=== PATIENT | female | born 1990 | race African-American/Black ===

== ENCOUNTER 2016-09-24 00:08 | Emergency (ER) | payer OTHER ==
[2016-09-24 00:14] VITALS: BP 125/66; PULSE 65; RESP 18; TEMP 98.3
[2016-09-24] MEDS ORDERED: IBUPROFEN 400 MG TAB PO STA (00:37)
--- NOTE | 2016-09-24 00:42 | ED ---
Extremity Problem HPI - General Chief complaint: Extremity Problem,Nontraumatic Stated complaint: elbow pain Time Seen by Provider: 09/24/16 00:26 Source: patient Mode of arrival: ambulatory Limitations: no limitations - History of Present Illness MD Complaint: joint paint Onset/Timin -: days(s) Location: right, elbow History of Same: No Quality: dull Consistency: constant Improves with: nothing Worsens with: other Associated Symptoms: denies other symptoms (Movement) - Related Data Previous Rx's Medication Instructions Recorded Ibuprofen 800 mg PO TID #30 tablet 09/24/16 Allergies Allergy/AdvReac Type Severity Reaction Status Date / Time No Known Allergies Allergy Verified 09/24/16 00:14 Review of Systems ROS Statement: Those systems with pertinent positive or pertinent negative responses have been documented in the HPI. ROS Other: All systems not noted in ROS Statement are negative. Past Medical History Past Medical History: Asthma, Hypertension Additional Past Medical History / Comment(s): "lupus" History of Any Multi-Drug Resistant Organisms: None Reported Past Surgical History: Section, Orthopedic Surgery Additional Past Surgical History / Comment(s): c-sect x 3, ovarian cysts removed , left foot reconstruction Past Psychological History: No Psychological Hx Reported Smoking Status: Never smoker Past Alcohol Use History: None Reported Past Drug Use History: None Reported General Exam Limitations: no limitations General appearance: alert, in no apparent distress, obese Cardiovascular Exam: Present: other (Normal radial and ulnar pulse. Normal capillary refill) Right Shoulder Exam: Present: normal inspection, full ROM Upper Arm exam: Present: normal inspection, full ROM Elbow exam: Present: normal inspection, full ROM, tenderness (To the posterior medial aspect, adjacent to the medial epicondyle. Inspection is normal, and palpation reveals no obvious deformity.). Absent: swelling, abrasion, laceration, ecchymosis, deformity, crepitus, dislocation, erythema, effusion, pain w/ pronation/supination, tenderness over radial head Forearm Wrist exam: Present: normal inspection, full ROM. Absent: tenderness, swelling, abrasion Hand Wrist exam: Present: normal inspection, full ROM. Absent: tenderness, swelling, abrasion Neurosensory exam: Present: radial nerve intact, ulnar nerve intact, median nerve intact Vascular: Present: normal capillary refill Neurological exam: Absent: motor sensory deficit Skin exam: Present: warm, dry, intact, normal color. Absent: rash Course Vital Signs 09/24/16 00:09 Temperature 98.3 F Pulse Rate 65 Respiratory 18 Rate Blood Pressure 125/66 O2 Sat by Pulse 97 Oximetry Disposition Clinical Impression: Strain of elbow and forearm Disposition: HOME SELF-CARE Condition: Good Instructions: Tennis Elbow (ED) Prescriptions: Ibuprofen 800 mg PO TID #30 tablet Referrals: None,Stated [REFERRING] - 1-2 days
--- NOTE | 2016-09-24 01:17 | XR ---
EXAM: XR Right Elbow Complete, 3 or More Views CLINICAL HISTORY: Reason: Pain TECHNIQUE: Frontal, lateral and oblique views of the right elbow. COMPARISON: No relevant prior studies available. FINDINGS: Bones/joints: Unremarkable. No acute fracture. No dislocation. Soft tissues: Unremarkable. IMPRESSION: No acute osseous abnormality of the right elbow.
== END 2016-09-24 01:25 | disposition home or self-care (01) ==
LOC: EC 00:08
DX: S46.811A Strain of other muscles, fascia and tendons at shoulder and upper arm level, right arm, initial encounter (principal); S56.911A Strain of unspecified muscles, fascia and tendons at forearm level, right arm, initial encounter; X58.XXXA Exposure to other specified factors, initial encounter
CPT/HCPCS: 99283

== ENCOUNTER 2016-10-08 21:45 | Emergency (ER) | payer OTHER ==
[2016-10-08 22:22] VITALS: RESP 18
[2016-10-08] MEDS ORDERED: KETOROLAC 30 MG/ML 1 ML VIAL IVP STA (23:18)
[2016-10-08] MEDS ORDERED: SODIUM CHLORIDE 0.9% 500 ML IV STA (23:18)
--- NOTE | 2016-10-08 23:23 | ED ---
General Adult HPI - General Chief complaint: Recheck/Abnormal Lab/Rx Stated complaint: abdominal pain Time Seen by Provider: 10/08/16 23:04 Source: patient Mode of arrival: ambulatory Limitations: no limitations - History of Present Illness Initial comments: Patient is a 25-year-old woman with history of lupus, who states that she has been out of her lupus medication for a period of time and is now having aches all over including her abdomen. She states that the abdominal pain is probably the worst. She indicates pain diffusely. It is somewhat colicky. She has not discovered any worsening or relieving factors. She states that she gets her primary care out of the city of [place], and when she called her doctor to let them know that she was out of her medication, the scheduled her for an appointment at start of November. -: days(s) Location: abdomen Radiation: non-radiation Quality: dull Consistency: constant Improves with: none Worsens with: none - Related Data Previous Rx's Medication Instructions Recorded Ibuprofen 800 mg PO TID #30 tablet 09/24/16 predniSONE 60 mg PO DAILY #30 tab 10/09/16 Allergies Allergy/AdvReac Type Severity Reaction Status Date / Time No Known Allergies Allergy Verified 10/08/16 22:22 Review of Systems ROS Statement: Those systems with pertinent positive or pertinent negative responses have been documented in the HPI. ROS Other: All systems not noted in ROS Statement are negative. Constitutional: Denies: fever, chills, weakness Respiratory: Denies: cough, dyspnea Cardiovascular: Denies: chest pain, palpitations, orthopnea Gastrointestinal: Reports: abdominal pain, nausea. Denies: vomiting, diarrhea, constipation, melena, hematochezia Genitourinary: Denies: dysuria, hematuria Musculoskeletal: Reports: arthralgia, myalgia. Denies: back pain Skin: Denies: rash Neurological: Denies: headache, weakness, numbness, paresthesias Past Medical History Past Medical History: Asthma, Hypertension Additional Past Medical History / Comment(s): "lupus" History of Any Multi-Drug Resistant Organisms: None Reported Past Surgical History: Section, Orthopedic Surgery Additional Past Surgical History / Comment(s): c-sect x 3, ovarian cysts removed , left foot reconstruction Past Psychological History: Bipolar Smoking Status: Never smoker Past Alcohol Use History: None Reported Past Drug Use History: None Reported General Exam Limitations: no limitations General appearance: alert, in no apparent distress, obese Head exam: Present: atraumatic, normocephalic Eye exam: Present: normal appearance. Absent: scleral icterus, conjunctival injection ENT exam: Present: normal oropharynx Neck exam: Present: normal inspection Respiratory exam: Present: normal lung sounds bilaterally. Absent: respiratory distress, wheezes, rales, rhonchi, stridor Cardiovascular Exam: Present: regular rate, normal rhythm, normal heart sounds. Absent: systolic murmur, diastolic murmur, rubs, gallop GI/Abdominal exam: Present: soft, tenderness. Absent: distended, guarding, rebound, rigid, mass, pulsatile mass, hernia Extremities exam: Present: normal inspection, normal capillary refill. Absent: pedal edema, calf tenderness Back exam: Present: normal inspection. Absent: CVA tenderness (R), CVA tenderness (L) Neurological exam: Present: alert Skin exam: Present: warm, dry, intact, normal color. Absent: rash Course Vital Signs 10/08/16 22:20 Temperature 98.7 F Pulse Rate 89 Respiratory 18 Rate Blood Pressure 121/82 O2 Sat by Pulse 98 Oximetry Medical Decision Making - Lab Data Result diagrams: 10/09/16 00:00 10/09/16 00:00 Lab Results 10/09/16 10/09/16 10/09/16 Range/Units 00:00 00:00 00:00 WBC 8.5 (3.8-10.6) k/uL RBC 4.26 (3.80-5.40) m/uL Hgb 13.2 (11.4-16.0) gm/dL Hct 37.6 (34.0-46.0) % MCV 88.2 (80.0-100.0) fL MCH 30.9 (25.0-35.0) pg MCHC 35.1 (31.0-37.0) g/dL RDW 13.7 (11.5-15.5) % Plt Count 265 (150-450) k/uL Neutrophils % 69 % Lymphocytes % 23 % Monocytes % 5 % Eosinophils % 1 % Basophils % 0 % Neutrophils # 5.8 (1.3-7.7) k/uL Lymphocytes # 2.0 (1.0-4.8) k/uL Monocytes # 0.4 (0-1.0) k/uL Eosinophils # 0.1 (0-0.7) k/uL Basophils # 0.0 (0-0.2) k/uL Sodium 141 (137-145) mmol/L Potassium 4.1 (3.5-5.1) mmol/L Chloride 106 (98-107) mmol/L Carbon Dioxide 24 (22-30) mmol/L Anion Gap 11 mmol/L BUN 10 (7-17) mg/dL Creatinine 0.70 (0.52-1.04) mg/dL Est GFR (MDRD) Af Amer >60 (>60 ml/min/1.73 sqM) Est GFR (MDRD) Non-Af >60 (>60 ml/min/1.73 sqM) Glucose 94 (74-99) mg/dL Plasma Lactic Acid Mervin 1.6 (0.7-2.0) mmol/L Calcium 9.7 (8.4-10.2) mg/dL Total Bilirubin 0.3 (0.2-1.3) mg/dL AST 20 (14-36) U/L ALT 30 (9-52) U/L Alkaline Phosphatase 95 (38-126) U/L C-Reactive Protein 11.0 H (<10.0) mg/L Total Protein 7.3 (6.3-8.2) g/dL Albumin 4.1 (3.5-5.0) g/dL Amylase 47 (30-110) U/L Lipase 83 (23-300) U/L Urine Color Urine Appearance (Clear) Urine pH (5.0-8.0) Ur Specific Cantil (1.001-1.035) Urine Protein (Negative) Urine Glucose (UA) (Negative) Urine Ketones (Negative) Urine Blood (Negative) Urine Nitrite (Negative) Urine Bilirubin (Negative) Urine Urobilinogen (<2.0) mg/dL Ur Leukocyte Esterase (Negative) Urine RBC (0-5) /hpf Urine WBC (0-5) /hpf Ur Squamous Epith Cells (0-4) /hpf Urine Bacteria (None) /hpf Urine Mucus (None) /hpf 10/09/16 Range/Units 00:05 WBC (3.8-10.6) k/uL RBC (3.80-5.40) m/uL Hgb (11.4-16.0) gm/dL Hct (34.0-46.0) % MCV (80.0-100.0) fL MCH (25.0-35.0) pg MCHC (31.0-37.0) g/dL RDW (11.5-15.5) % Plt Count (150-450) k/uL Neutrophils % % Lymphocytes % % Monocytes % % Eosinophils % % Basophils % % Neutrophils # (1.3-7.7) k/uL Lymphocytes # (1.0-4.8) k/uL Monocytes # (0-1.0) k/uL Eosinophils # (0-0.7) k/uL Basophils # (0-0.2) k/uL Sodium (137-145) mmol/L Potassium (3.5-5.1) mmol/L Chloride (98-107) mmol/L Carbon Dioxide (22-30) mmol/L Anion Gap mmol/L BUN (7-17) mg/dL Creatinine (0.52-1.04) mg/dL Est GFR (MDRD) Af Amer (>60 ml/min/1.73 sqM) Est GFR (MDRD) Non-Af (>60 ml/min/1.73 sqM) Glucose (74-99) mg/dL Plasma Lactic Acid Mervin (0.7-2.0) mmol/L Calcium (8.4-10.2) mg/dL Total Bilirubin (0.2-1.3) mg/dL AST (14-36) U/L ALT (9-52) U/L Alkaline Phosphatase (38-126) U/L C-Reactive Protein (<10.0) mg/L Total Protein (6.3-8.2) g/dL Albumin (3.5-5.0) g/dL Amylase (30-110) U/L Lipase (23-300) U/L Urine Color Yellow Urine Appearance Cloudy H (Clear) Urine pH 7.0 (5.0-8.0) Ur Specific [place]il 1.023 (1.001-1.035) Urine Protein Negative (Negative) Urine Glucose (UA) Negative (Negative) Urine Ketones Negative (Negative) Urine Blood Negative (Negative) Urine Nitrite Negative (Negative) Urine Bilirubin Negative (Negative) Urine Urobilinogen 2.0 (<2.0) mg/dL Ur Leukocyte Esterase Negative (Negative) Urine RBC 3 (0-5) /hpf Urine WBC 1 (0-5) /hpf Ur Squamous Epith Cells 2 (0-4) /hpf Urine Bacteria Occasional H (None) /hpf Urine Mucus Rare H (None) /hpf Disposition Clinical Impression: Lupus (systemic lupus erythematosus), Polyarthralgia, Myalgia Disposition: HOME SELF-CARE Condition: Fair Instructions: Abdominal Pain (ED), Autoimmune Disease (ED) Prescriptions: predniSONE 60 mg PO DAILY #30 tab Referrals: None,Stated [Primary Care Provider] - 1-2 days Kellie Lantigua MD [STAFF PHYSICIAN] - 1-2 days
[2016-10-09 00:23] LABS: Basophils % (A) 0 %; CHCM 34.1; Eosinophils # (A) 0.1 k/uL (0-0.7); Eosinophils % (A) 1 %; HCT 37.6 % (34.0-46.0); HDW 2.87; HGB 13.2 gm/dL (11.4-16.0); Luc # (Auto) 0.24; Luc % (Auto) 3; Lymphocytes % (A) 23 %; MCH 30.9 pg (25.0-35.0); MCHC 35.1 g/dL (31.0-37.0); MCV 88.2 fL (80.0-100.0); Mean Platelet Volume 6.3; Monocytes # (A) 0.4 k/uL (0-1.0); Monocytes % (A) 5 %; Neutrophils # (A) 5.8 k/uL (1.3-7.7); Neutrophils % (A) 69 %; RBC 4.26 m/uL (3.80-5.40); RDW 13.7 % (11.5-15.5); WBC 8.5 k/uL (3.8-10.6); WBC (Perox) 8.65
[2016-10-09 00:36] LABS: Appearance,Urine Cloudy (Clear); Bacteria,Urine Occasional /hpf; Bilirubin,Urine Negative (Negative); Glucose,Urine (UA) Negative (Negative); Ketones,Urine Negative (Negative); Leukocyte Esterase,Urine Negative (Negative); Mucus,Urine Rare /hpf; Nitrite,Urine Negative (Negative); Particle Count 6998; Protein,Urine Negative (Negative); RBC,Urine 3 /hpf (0-5); Specific Gravity,Urine 1.023 (1.001-1.035); Squamous Epithelial Cell,Urine 2 /hpf (0-4); UA Billing (MACRO vs. MICRO) MICRO; WBC,Urine 1 /hpf (0-5)
[2016-10-09 00:45] LABS: ALT 30 U/L (9-52); AST 20 U/L (14-36); Alkaline Phosphatase 95 U/L (38-126); Amylase 47 U/L (30-110); Anion Gap 11 mmol/L; Blood Urea Nitrogen 10 mg/dL (7-17); Calcium 9.7 mg/dL (8.4-10.2); Carbon Dioxide 24 mmol/L (22-30); Chloride 106 mmol/L (98-107); Glucose 94 mg/dL (74-99); Non-African American GFR(MDRD) >60 (>60 ml/min/1.73 sqM); Potassium 4.1 mmol/L (3.5-5.1); Sodium 141 mmol/L (137-145); Total Bilirubin 0.3 mg/dL (0.2-1.3); Total Protein 7.3 g/dL (6.3-8.2)
[2016-10-09] MEDS ORDERED: predniSONE 20 MG TAB PO STA (01:00)
[2016-10-09 01:08] LABS: Erythrocyte Sedimentation Rate 19 mm/hr (0-20)
[2016-10-09 01:15] VITALS: BP 154/97; PULSE 76; TEMP 98.4
== END 2016-10-09 01:38 | disposition home or self-care (01) ==
LOC: EC 21:45
DX: M32.9 Systemic lupus erythematosus, unspecified (principal)
CPT/HCPCS: 99284; 96374; 96361; 36415; 80053; 85652; 82150; 83605; 83690; 85025; 86140; 81001; J1885; J7512

== ENCOUNTER → 2016-10-19 | Outpatient (CLI) | payer OTHER ==
--- NOTE | 2016-10-20 08:02 | XR ---
Two-view spine HISTORY: Pain and burning sensation, R 52 2 views of the spine submitted on a total of 9 images Correlation to prior lumbar spine 01/19/2009 Loss of cervical lordosis may be due to muscle spasm or positioning. Cervical, thoracic, lumbar verte bral bodies show preserved height, alignment, and bone mineralization. Disc spaces are maintained. No evident paraspinal mass. IMPRESSION: No significant abnormality is evident. Additional findings above.
== END | disposition home or self-care (01) ==
LOC: RADXRMAIN 15:58
PROVIDERS: ATTEND Internal Medicine
DX: R52 Pain, unspecified (principal)
CPT/HCPCS: 72082

== ENCOUNTER 2016-11-30 21:07 | Observation (INO) | payer OTHER ==
[2016-11-30] MEDS ORDERED: NITROGLYCERIN OINT 1 INCH/GM PACKET TOPICAL STA (22:07)
[2016-11-30] MEDS ORDERED: ONDANSETRON 4 MG/2 ML VIAL IVP STA (22:07)
[2016-11-30] MEDS ORDERED: ASPIRIN 81 MG PO STA (22:07)
[2016-11-30] MEDS ORDERED: SODIUM CHLORIDE 0.9% 1,000 ML IV STA (22:07)
[2016-11-30] MEDS ORDERED: MORPHINE SULFATE 4 MG/ML SYRINGE IV STA (22:08)
[2016-11-30] MEDS ORDERED: RX INFO: IV CONTRAST WAS GIVEN 1 EACH MISC MISCELLANE PRN (22:09)
--- NOTE | 2016-11-30 22:12 | ED ---
General Adult HPI - General Chief complaint: Headache Stated complaint: Chest Pain Time Seen by Provider: 11/30/16 21:58 Source: patient, RN notes reviewed Mode of arrival: ambulatory Limitations: no limitations - History of Present Illness Initial comments: Patient is a pleasant 26-year-old female presenting to the emergency Department with multiple complaints. Patient does complain of headache for the past 3 days. Patient does have chronic migraines and has been previously evaluated and had previous computed tomography scan for this. This does feel similar to previous migraines. Gradual onset. Patient also has lupus with diffuse aches and occasional rash. Patient is on a medications otherwise for her lupus. Patient does have some neck discomfort. Patient has tightness in her chest. Patient has had several episodes of nausea vomiting. Patient does admit to having some associated mild dyspnea with her chest tightness. - Related Data Home Medications Medication Instructions Recorded Confirmed Adapalene [Differin] 1 applic TOPICAL DAILY 11/30/16 11/30/16 Albuterol Inhaler [Ventolin Hfa 1 - 2 puff INHALATION RT-Q6H PRN 11/30/16 Inhaler] Beclomethasone Dipropionate [Qvar 1 puff INHALATION RT-DAILY 11/30/16 11/30/16 40 mcg] Butalb/APAP/Caff 50-325-40Mg 1 tab PO DAILY PRN 11/30/16 11/30/16 [Fioricet 50-325-40] Ergocalciferol (Vitamin D2) 50,000 unit PO Q7D 11/30/16 11/30/16 [Vitamin D2] Fluocinolone Acetonide [Lidex Soln] 1 applic TOPICAL HS 11/30/16 11/30/16 Ranitidine HCl [Zantac] 300 mg PO DAILY 11/30/16 11/30/16 amLODIPine [Norvasc] 10 mg PO DAILY 11/30/16 11/30/16 Allergies Allergy/AdvReac Type Severity Reaction Status Date / Time No Known Allergies Allergy Verified 11/30/16 21:40 Review of Systems ROS Statement: Those systems with pertinent positive or pertinent negative responses have been documented in the HPI. ROS Other: All systems not noted in ROS Statement are negative. Constitutional: Denies: fever Eyes: Denies: eye pain ENT: Denies: ear pain Respiratory: Reports: dyspnea Cardiovascular: Reports: chest pain Endocrine: Reports: fatigue Gastrointestinal: Reports: nausea, vomiting Genitourinary: Denies: dysuria Skin: Denies: rash (No rashes this time) Neurological: Reports: headache Past Medical History Past Medical History: Asthma, Hypertension Additional Past Medical History / Comment(s): "lupus" History of Any Multi-Drug Resistant Organisms: None Reported Past Surgical History: Section, Orthopedic Surgery Additional Past Surgical History / Comment(s): c-sect x 3, ovarian cysts removed , left foot reconstruction Past Psychological History: Bipolar Smoking Status: Never smoker Past Alcohol Use History: None Reported Past Drug Use History: None Reported General Exam Limitations: no limitations General appearance: alert, in no apparent distress, obese Head exam: Present: atraumatic, normocephalic Eye exam: Present: normal appearance, PERRL, EOMI. Absent: nystagmus ENT exam: Present: normal oropharynx Neck exam: Present: normal inspection, full ROM. Absent: tenderness, meningismus Respiratory exam: Present: normal lung sounds bilaterally, chest wall tenderness Cardiovascular Exam: Present: regular rate, normal rhythm Expanded Peripheral pulses: 2+: Radial (R), Radial (L), Dorsalis Pedis (R), Dorsalis Pedis (L) GI/Abdominal exam: Present: soft. Absent: tenderness Extremities exam: Present: normal inspection. Absent: pedal edema, calf tenderness Neurological exam: Present: alert, oriented X3, CN II-XII intact. Absent: motor sensory deficit Expanded Speech: Present: fluid speech Cranial nerves: EOM's Intact: Normal, Facial Sensation: Normal Sensory exam: Upper Extremity Light Touch: Normal, Lower Extremity Light Touch: Normal Motor strength exam: RUE: 5, LUE: 5, RLE: 5, LLE: 5 Eye Response: (4) open spontaneously Motor Response: (6) obeys commands Verbal Response: (5) oriented Psychiatric exam: Present: normal affect, normal mood Skin exam: Present: normal color Course Vital Signs 11/30/16 11/30/16 21:21 23:09 Temperature 97.5 F L Pulse Rate 76 74 Respiratory 18 18 Rate Blood Pressure 134/69 138/75 O2 Sat by Pulse 99 100 Oximetry EKG Findings - EKG Comments: EKG Findings:: Sinus bradycardia 59. MI 140. QRS 84. QT 416. QTC 411. Normal axis. Normal QRS. No acute ST change. Medical Decision Making - Medical Decision Making Patient reevaluated and resting comfortably at bedside. Patient states symptoms have near resolved. Patient was updated on results and plan. Secondary to history of lupus patient will be held for observation. Case discussed with practitioner Marva, who will admit for Dr. Cox, covering for Dr. Watson. - Lab Data Result diagrams: 11/30/16 22:54 11/30/16 22:54 Lab Results 11/30/16 11/30/16 11/30/16 Range/Units 22:54 22:54 22:54 WBC 8.2 (3.8-10.6) k/uL RBC 4.33 (3.80-5.40) m/uL Hgb 13.4 (11.4-16.0) gm/dL Hct 38.2 (34.0-46.0) % MCV 88.2 (80.0-100.0) fL MCH 30.8 (25.0-35.0) pg MCHC 35.0 (31.0-37.0) g/dL RDW 13.4 (11.5-15.5) % Plt Count 295 (150-450) k/uL Neutrophils % 66 % Lymphocytes % 27 % Monocytes % 5 % Eosinophils % 1 % Basophils % 0 % Neutrophils # 5.4 (1.3-7.7) k/uL Lymphocytes # 2.2 (1.0-4.8) k/uL Monocytes # 0.4 (0-1.0) k/uL Eosinophils # 0.1 (0-0.7) k/uL Basophils # 0.0 (0-0.2) k/uL PT (9.0-12.0) sec INR (<1.2) APTT (22.0-30.0) sec Sodium 139 (137-145) mmol/L Potassium 4.3 (3.5-5.1) mmol/L Chloride 105 (98-107) mmol/L Carbon Dioxide 25 (22-30) mmol/L Anion Gap 9 mmol/L BUN 8 (7-17) mg/dL Creatinine 0.70 (0.52-1.04) mg/dL Est GFR (MDRD) Af Amer >60 (>60 ml/min/1.73 sqM) Est GFR (MDRD) Non-Af >60 (>60 ml/min/1.73 sqM) Glucose 90 (74-99) mg/dL Calcium 9.6 (8.4-10.2) mg/dL Magnesium 1.6 (1.6-2.3) mg/dL Total Bilirubin 0.4 (0.2-1.3) mg/dL AST 21 (14-36) U/L ALT 34 (9-52) U/L Alkaline Phosphatase 84 (38-126) U/L Total Creatine Kinase 105 (30-135) U/L CK-MB (CK-2) <0.2 (0.0-2.4) ng/mL CK-MB (CK-2) Rel Index Troponin I 0.023 (0.000-0.034) ng/mL Total Protein 7.2 (6.3-8.2) g/dL Albumin 4.1 (3.5-5.0) g/dL Amylase 49 (30-110) U/L Lipase 75 (23-300) U/L 11/30/16 Range/Units 22:54 WBC (3.8-10.6) k/uL RBC (3.80-5.40) m/uL Hgb (11.4-16.0) gm/dL Hct (34.0-46.0) % MCV (80.0-100.0) fL MCH (25.0-35.0) pg MCHC (31.0-37.0) g/dL RDW (11.5-15.5) % Plt Count (150-450) k/uL Neutrophils % % Lymphocytes % % Monocytes % % Eosinophils % % Basophils % % Neutrophils # (1.3-7.7) k/uL Lymphocytes # (1.0-4.8) k/uL Monocytes # (0-1.0) k/uL Eosinophils # (0-0.7) k/uL Basophils # (0-0.2) k/uL PT 10.2 (9.0-12.0) sec INR 1.0 (<1.2) APTT 24.5 (22.0-30.0) sec Sodium (137-145) mmol/L Potassium (3.5-5.1) mmol/L Chloride (98-107) mmol/L Carbon Dioxide (22-30) mmol/L Anion Gap mmol/L BUN (7-17) mg/dL Creatinine (0.52-1.04) mg/dL Est GFR (MDRD) Af Amer (>60 ml/min/1.73 sqM) Est GFR (MDRD) Non-Af (>60 ml/min/1.73 sqM) Glucose (74-99) mg/dL Calcium (8.4-10.2) mg/dL Magnesium (1.6-2.3) mg/dL Total Bilirubin (0.2-1.3) mg/dL AST (14-36) U/L ALT (9-52) U/L Alkaline Phosphatase (38-126) U/L Total Creatine Kinase (30-135) U/L CK-MB (CK-2) (0.0-2.4) ng/mL CK-MB (CK-2) Rel Index Troponin I (0.000-0.034) ng/mL Total Protein (6.3-8.2) g/dL Albumin (3.5-5.0) g/dL Amylase (30-110) U/L Lipase (23-300) U/L - Radiology Data Radiology results: image reviewed (CT angiogram of the chest is somewhat limited. No gross evidence of pulmonary embolism. cardiomegaly with trace pericardial effusion.) Disposition Clinical Impression: Chest pain Disposition: ADMITTED IP TO THIS HOSP Referrals: Pamela Cheng MD [Primary Care Provider] - 1-2 days Decision Time: 00:26
[2016-11-30 23:18] LABS: Basophils % (A) 0 %; CH 30.2; CHCM 34.4; Eosinophils # (A) 0.1 k/uL (0-0.7); Eosinophils % (A) 1 %; HCT 38.2 % (34.0-46.0); HDW 2.88; HGB 13.4 gm/dL (11.4-16.0); Luc # (Auto) 0.15; Luc % (Auto) 2; Lymphocytes # (A) 2.2 k/uL (1.0-4.8); Lymphocytes % (A) 27 %; MCH 30.8 pg (25.0-35.0); MCV 88.2 fL (80.0-100.0); Mean Platelet Volume 6.4; Monocytes # (A) 0.4 k/uL (0-1.0); Monocytes % (A) 5 %; Neutrophils # (A) 5.4 k/uL (1.3-7.7); Neutrophils % (A) 66 %; RBC 4.33 m/uL (3.80-5.40); RDW 13.4 % (11.5-15.5); WBC 8.2 k/uL (3.8-10.6); WBC (Perox) 8.25
[2016-11-30 23:26] LABS: Partial Thromboplastin Time 24.5 sec (22.0-30.0); Prothrombin Time 10.2 sec (9.0-12.0)
[2016-11-30 23:27] LABS: ALT 34 U/L (9-52); AST 21 U/L (14-36); Alkaline Phosphatase 84 U/L (38-126); Amylase 49 U/L (30-110); Anion Gap 9 mmol/L; Blood Urea Nitrogen 8 mg/dL (7-17); Calcium 9.6 mg/dL (8.4-10.2); Carbon Dioxide 25 mmol/L (22-30); Chloride 105 mmol/L (98-107); Glucose 90 mg/dL (74-99); Magnesium 1.6 mg/dL (1.6-2.3); Non-African American GFR(MDRD) >60 (>60 ml/min/1.73 sqM); Potassium 4.3 mmol/L (3.5-5.1); Sodium 139 mmol/L (137-145); Total Bilirubin 0.4 mg/dL (0.2-1.3); Total Protein 7.2 g/dL (6.3-8.2)
[2016-11-30 23:43] LABS: Creatine Kinase 105 U/L (30-135)
[2016-11-30 23:56] LABS: Creatine Kinase MB <0.2 ng/mL (0.0-2.4); Troponin I 0.023 ng/mL (0.000-0.034)
--- NOTE | 2016-12-01 00:10 | CT ---
EXAM: CT Angiography Chest With Intravenous Contrast CLINICAL HISTORY PROVIDED: Reason: pe protocol TECHNIQUE: Axial computed tomographic angiography images of the chest with intravenous contrast using pulmonary embolism protocol. CTDI is 160.70 mGy and DLP is 945.20 mGy-cm. This CT exam was performed using one or more of the following dose reduction techniques: automated exposure control, adjustment of the mA and/or kV according to patient size, and/or use of iterative reconstruction technique. MIP reconstructed images were created and reviewed. COMPARISON: No relevant prior studies available. FINDINGS: Limitations: Motion related artifact. Attenuation due to the patient's body habitus. Pulmonary arteries: No definite evidence of pulmonary embolism is seen, allowing for this, including no central or large segmental PE identified although assessment is limited, including of the peripheral subsegmental branches. Aorta: No acute findings. No thoracic aortic aneurysm. Lungs: Minimal dependent changes without superimposed infiltrate. No mass. Pleural space: Unremarkable. No significant effusion. No pneumothorax. Heart: Mild cardiomegaly. Trace pericardial effusion. No evidence of RV dysfunction. Bones/joints: No acute fracture. Soft tissues: Unremarkable. Lymph nodes: No adenopathy is seen. IMPRESSION: 1. Limited, without gross evidence of pulmonary embolism. 2. Mild cardiomegaly with trace pericardial effusion.
[2016-12-01] MEDS ORDERED: NITROGLYCERIN SL TABS 0.4 MG TAB SUBLINGUAL PRN (00:26)
[2016-12-01] MEDS ORDERED: ONDANSETRON 4 MG/2 ML VIAL IVP STA (00:52)
[2016-12-01] MEDS ORDERED: MORPHINE SULFATE 4 MG/ML SYRINGE IVP STA (00:53)
[2016-12-01] MEDS ORDERED: diphenhydrAMINE 25 MG CAP PO PRN (02:03)
[2016-12-01] MEDS ORDERED: ALBUTEROL NEBULIZED 2.5 MG/3 ML INHALATION PRN (02:04)
[2016-12-01] MEDS: BUTA/APAP/CAF/COD 50-325-40-30 CAP PO PRN ×2 (03:04→09:18)
[2016-12-01] MEDS: NITROGLYCERIN OINT 1 INCH/GM PACKET TOPICAL SCH ×2 (04:18→13:35)
[2016-12-01 06:11] LABS: Basophils % (A) 1 %; CH 30.9; CHCM 34.2; Eosinophils % (A) 1 %; HCT 36.8 % (34.0-46.0); HDW 2.79; Luc # (Auto) 0.13; Luc % (Auto) 2; Lymphocytes # (A) 2.1 k/uL (1.0-4.8); Lymphocytes % (A) 28 %; MCH 29.6 pg (25.0-35.0); MCHC 32.6 g/dL (31.0-37.0); MCV 90.9 fL (80.0-100.0); Mean Platelet Volume 6.9; Monocytes # (A) 0.3 k/uL (0-1.0); Monocytes % (A) 4 %; Neutrophils # (A) 4.8 k/uL (1.3-7.7); Neutrophils % (A) 65 %; RBC 4.05 m/uL (3.80-5.40); RDW 14.2 % (11.5-15.5); WBC 7.5 k/uL (3.8-10.6); WBC (Perox) 7.74
[2016-12-01 06:28] LABS: Anion Gap 8 mmol/L; Blood Urea Nitrogen 6 mg/dL (7-17); Carbon Dioxide 20 mmol/L (22-30); Chloride 109 mmol/L (98-107); Glucose 92 mg/dL (74-99); Non-African American GFR(MDRD) >60 (>60 ml/min/1.73 sqM); Potassium 3.9 mmol/L (3.5-5.1); Sodium 137 mmol/L (137-145)
[2016-12-01 06:37] LABS: Creatine Kinase 93 U/L (30-135)
[2016-12-01 06:50] LABS: Creatine Kinase MB <0.2 ng/mL (0.0-2.4); Troponin I 0.014 ng/mL (0.000-0.034)
[2016-12-01] MEDS ORDERED: BUDESONIDE 0.5 MG/2 ML NEBU INHALATION SCH ×2 (08:00→09:08)
[2016-12-01 08:14] VITALS: TEMP 97.8
[2016-12-01] MEDS ORDERED: ERGOCALCIFEROL 50,000 UNIT CAP PO SCH (09:00)
[2016-12-01] MEDS ORDERED: PANTOPRAZOLE 40 MG/10 ML VIAL IVP SCH (09:00)
[2016-12-01] MEDS ORDERED: FAMOTIDINE 20 MG TAB PO SCH (09:00)
[2016-12-01] MEDS ORDERED: ADAPALENE TOPICAL SCH (09:00)
[2016-12-01] MEDS ORDERED: ASPIRIN 325 MG TAB PO SCH (09:00)
--- NOTE | 2016-12-01 10:58 | P.CRDCN ---
History of Present Illness Consult reason: chest pain History of present illness: 26-year-old female who presented with several days of left lateral chest discomfort continuous. She's had a history of lupus, probably history of DVT EKG is normal no shortness of breath no syncope Review of systems: No fever chills or rigors, no cough, phlegm or expectoration , no nausea, vomiting or diarrhea, no hematuria, dysuria, no musculoskeletal complaints, no strokes or seizures, no skin lesions. CT angiogram with IV contrast but this was a limited study but there is no clear -cut evidence for pulmonary embolism ECG shows sinus rhythm with normal cardiac intervals no ST segment abnormalities Medication list reviewed ALLERGIES reviewed she has NO KNOWN DRUG ALLERGIES Examination Afebrile, heart rate normal respirations normal blood pressure 117/75 mmHg Heart sounds are normal no murmurs or gallops Breath sounds are reduced bilaterally no rhonchi no crackles Extremities warm no edema Impression Atypical chest discomfort CT angios done to rule out pulmonary members and this was a limited study I would suggest at least a d-dimer and if this is completely normal then she may go home follow-up with her primary care physician No cardiac G follow-up indicated Past Medical History Past Medical History: Asthma, Hypertension Additional Past Medical History / Comment(s): "lupus" chronic migraines, pt has been diagnosed with a heart problem not sure what it is History of Any Multi-Drug Resistant Organisms: None Reported Past Surgical History: Section, Orthopedic Surgery Additional Past Surgical History / Comment(s): c-sect x 3, ovarian cysts removed , left foot reconstruction Additional Past Anesthesia/Blood Transfusion Reaction / Comment(s): pt thinks she has had a reaction, but does not remember the reaction - hives possibly Past Psychological History: Bipolar Smoking Status: Never smoker Past Alcohol Use History: None Reported Past Drug Use History: None Reported - Past Family History Mother Family Medical History: Diabetes Mellitus, Hypertension Father Family Medical History: Diabetes Mellitus, Hearing Disorder / Deafness, Hypertension Daughter(s) Additional Family Medical History / Comment(s): hearing problems, digestive system problems Medications and Allergies Home Medications Medication Instructions Recorded Confirmed Type Adapalene [Differin] 1 applic TOPICAL DAILY 11/30/16 11/30/16 History Albuterol Inhaler [Ventolin Hfa 1 - 2 puff INHALATION RT-Q6H PRN 11/30/16 History Inhaler] Beclomethasone Dipropionate [Qvar 1 puff INHALATION RT-DAILY 11/30/16 11/30/16 History 40 mcg] Butalb/APAP/Caff 50-325-40Mg 1 tab PO DAILY PRN 11/30/16 11/30/16 History [Fioricet 50-325-40] Ergocalciferol (Vitamin D2) 50,000 unit PO Q7D 11/30/16 11/30/16 History [Vitamin D2] Fluocinolone Acetonide [Lidex Soln] 1 applic TOPICAL HS 11/30/16 11/30/16 History Ranitidine HCl [Zantac] 300 mg PO DAILY 11/30/16 11/30/16 History amLODIPine [Norvasc] 10 mg PO DAILY 11/30/16 11/30/16 History Sertraline HCl [Zoloft] 50 mg PO DAILY 12/01/16 12/01/16 History Allergies Allergy/AdvReac Type Severity Reaction Status Date / Time No Known Allergies Allergy Verified 11/30/16 21:40 Physical Exam Vitals: Vital Signs Temp Pulse Pulse Resp BP BP Pulse Ox 12/01/16 09:23 78 12/01/16 09:12 82 12/01/16 08:00 97.8 F 65 16 117/75 12/01/16 04:00 51 L 18 115/51 100 12/01/16 01:38 16 12/01/16 01:15 97.4 F L 68 16 110/59 100 12/01/16 00:47 98.9 F 51 L 18 121/62 97 11/30/16 23:09 74 18 138/75 100 11/30/16 21:21 97.5 F L 76 18 134/69 99 Intake and Output 11/30/16 12/01/16 12/01/16 22:59 06:59 14:59 Intake Total 400 Balance 400 Intake: IV 400 Sodium Chloride 0.9% 1, 400 000 ml @ 100 mls/hr IV . Q10H STA Rx#:[id number] Other: Weight 127.006 kg 137.8 kg 137.8 kg Patient Weight 12/02/16 06:59 Weight 137.8 kg Results 12/01/16 05:46 12/01/16 05:46 Cardiac Enzymes 11/30/16 11/30/1612/01/17 Range/Units 22:54 22:54 05:46 AST 21 (14-36) U/L CK-MB (CK-2) <0.2 <0.2 (0.0-2.4) ng/mL Troponin I 0.023 0.014 (0.000-0.034) ng/mL Coagulation 11/30/16 Range/Units 22:54 PT 10.2 (9.0-12.0) sec APTT 24.5 (22.0-30.0) sec CBC 11/30/16 12/01/16 Range/Units 22:54 05:46 WBC 8.2 7.5 (3.8-10.6) k/uL RBC 4.33 4.05 (3.80-5.40) m/uL Hgb 13.4 12.0 (11.4-16.0) gm/dL Hct 38.2 36.8 (34.0-46.0) % Plt Count 295 251 (150-450) k/uL Comprehensive Metabolic Panel 11/30/16 12/01/16 Range/Units 22:54 05:46 Sodium 139 137 (137-145) mmol/L Potassium 4.3 3.9 (3.5-5.1) mmol/L Chloride 105 109 H (98-107) mmol/L Carbon Dioxide 25 20 L (22-30) mmol/L BUN 8 6 L (7-17) mg/dL Creatinine 0.70 0.70 (0.52-1.04) mg/dL Glucose 90 92 (74-99) mg/dL Calcium 9.6 9.0 (8.4-10.2) mg/dL AST 21 (14-36) U/L ALT 34 (9-52) U/L Alkaline Phosphatase 84 (38-126) U/L Total Protein 7.2 (6.3-8.2) g/dL Albumin 4.1 (3.5-5.0) g/dL Current Medications Generic Name Dose Route Start Last Admin Trade Name Freq PRN Reason Stop Dose Admin Acetam/Butalbital/Caffeine/Codeine 1 each 12/01/16 02:02 12/01/16 09:18 Fioricet W/Codeine PO 1 each Q6HR PRN Administration Pain Albuterol Sulfate 2.5 mg 12/01/16 02:04 12/01/16 09:07 Ventolin Nebulized INHALATION 2.5 mg RT-Q6H PRN Administration Shortness Of Breath Aspirin 325 mg 12/01/16 09:00 12/01/16 09:17 Aspirin PO 325 mg DAILY MALCOLM Administration Betamethasone Dipropionate 1 applic 12/01/16 21:00 Diprolene Af TOPICAL HS MALCOLM Budesonide 0.5 mg 12/01/16 09:08 12/01/16 09:08 Pulmicort INHALATION 0.5 mg RT-BID MALCOLM Administration Diphenhydramine HCl 25 mg 12/01/16 02:03 12/01/16 03:05 Benadryl PO 25 mg Q6H PRN Administration Mild Itching Ergocalciferol 50,000 unit 12/01/16 09:00 12/01/16 09:17 Vitamin D2 PO Not Given Q7D [facility] Famotidine 40 mg 12/01/16 09:00 12/01/16 09:18 Pepcid PO Not Given DAILY [facility], [facility]1983 Miscellaneous Information 1 each 11/30/16 22:09 11/30/16 23:03 Rx Info: Iv Contrast Was Given MISCELLANE 12/02/16 22:09 1 each DAILY PRN Administration Per Protocol Nitroglycerin 1 inch 12/01/16 06:00 12/01/16 04:18 Nitro-Bid Oint TOPICAL Not Given Q6HR [facility]1983 Nitroglycerin 0.4 mg 12/01/16 00:26 Nitrostat SUBLINGUAL Q5M PRN Chest Pain Pantoprazole Sodium 40 mg 12/01/16 09:00 12/01/16 09:18 Protonix IVP 40 mg DAILY [facility] Administration Sertraline HCl 50 mg 12/01/16 21:00 Zoloft PO HS [facility]1983 Intake and Output 11/30/16 12/01/16 12/01/16 22:59 06:59 14:59 Intake Total 400 Balance 400 Intake: IV 400 Sodium Chloride 0.9% 1, 400 000 ml @ 100 mls/hr IV . Q10H STA Rx#:[id number] Other: Weight 127.006 kg 137.8 kg 137.8 kg Patient Weight 12/02/16 06:59 Weight 137.8 kg 12/01/16 05:46 12/01/16 05:46
[2016-12-01 11:16] LABS: Creatine Kinase 80 U/L (30-135)
[2016-12-01 11:30] LABS: Creatine Kinase MB <0.2 ng/mL (0.0-2.4); Troponin I 0.018 ng/mL (0.000-0.034)
[2016-12-01 11:32] VITALS: BP 113/68; PULSE 53; RESP 18
[2016-12-01 11:53] VITALS: BMI 47.5
--- NOTE | 2016-12-01 13:35 | P.DS ---
Providers Date of admission: 12/01/16 00:26 Attending physician: Cole Cox Consults: 12/01/16 00:26 Consult Physician Urgent Consulting Provider: Sudhakar Hatfield Consult Reason/Comments: chest pain Do you want consulting provider notified?: Yes Primary care physician: Prosper Santiago [facility] Course: Please refer to HPI Plan - Discharge Summary New Discharge Prescriptions: No Action Albuterol Inhaler [Ventolin Hfa Inhaler] 1 - 2 puff INHALATION RT-Q6H PRN PRN Reason: Shortness Of Breath Ranitidine HCl [Zantac] 300 mg PO DAILY Fluocinolone Acetonide [Lidex Soln] 1 applic TOPICAL HS Beclomethasone Dipropionate [Qvar 40 mcg] 1 puff INHALATION RT-DAILY amLODIPine [Norvasc] 10 mg PO DAILY Butalb/APAP/Caff 50-325-40Mg [Fioricet 50-325-40] 1 tab PO DAILY PRN PRN Reason: Migraine Headache Adapalene [Differin] 1 applic TOPICAL DAILY Ergocalciferol (Vitamin D2) [Vitamin D2] 50,000 unit PO Q7D Sertraline HCl [Zoloft] 50 mg PO DAILY Discharge Medication List Adapalene [Differin] 1 applic TOPICAL DAILY 11/30/16 [History] Albuterol Inhaler [Ventolin Hfa Inhaler] 1 - 2 puff INHALATION RT-Q6H PRN [History] Beclomethasone Dipropionate [Qvar 40 mcg] 1 puff INHALATION RT-DAILY 11/30/16 [ History] Butalb/APAP/Caff 50-325-40Mg [Fioricet 50-325-40] 1 tab PO DAILY PRN 11/30/16 [ History] Ergocalciferol (Vitamin D2) [Vitamin D2] 50,000 unit PO Q7D 11/30/16 [History] Fluocinolone Acetonide [Lidex Soln] 1 applic TOPICAL HS 11/30/16 [History] Ranitidine HCl [Zantac] 300 mg PO DAILY 11/30/16 [History] amLODIPine [Norvasc] 10 mg PO DAILY 11/30/16 [History] Sertraline HCl [Zoloft] 50 mg PO DAILY 12/01/16 [History] Follow up Appointment(s)/Referral(s): Pamela Cheng MD [Primary Care Provider] - 1-2 days
--- NOTE | 2016-12-01 13:35 | P.HPIM ---
History of Present Illness 22-year-old female with history of SLE, came in with complaints of chest pain across the chest, constant pain reproducible. Patient does have history of asthma as well denied any short of breath at this point of time. Patient is a multiple other symptoms including tingling and numbness of bilateral lower toes. Patient denied any fever, chills, nausea, vomiting. Patient was evaluated by cardiology and patient is an atypical chest pain that cleared for discharge after repeating d-dimer which is within normal limits and patient will be discharged today. Patient is morbidly obese counseling was provided regarding that. CT angios the chest was done which which did not show evidence of pulmonary embolism. Patient has musculoskeletal chest pain. Review of Systems REVIEW OF SYSTEMS: CONSTITUTIONAL: No fever, no malaise, no fatigue. HEENT: No recent visual problems or hearing problems. Denied any sore throat. CARDIOVASCULAR: No orthopnea, PND, no palpitations, no syncope. PULMONARY: No shortness of breath, no cough, no hemoptysis. GASTROINTESTINAL: No diarrhea, no nausea, no vomiting, no abdominal pain. Normoactive bowel sounds. NEUROLOGICAL: No headaches, no weakness, . HEMATOLOGICAL: Denies any bleeding or petechiae. GENITOURINARY: Denies any burning micturition, frequency, or urgency. MUSCULOSKELETAL/RHEUMATOLOGICAL: Denies any joint pain, swelling, or any muscle pain. ENDOCRINE: Denies any polyuria or polydipsia. The rest of the 14-point review of systems is negative. Past Medical History Past Medical History: Asthma, Hypertension Additional Past Medical History / Comment(s): "lupus" chronic migraines, pt has been diagnosed with a heart problem not sure what it is History of Any Multi-Drug Resistant Organisms: None Reported Past Surgical History: Section, Orthopedic Surgery Additional Past Surgical History / Comment(s): c-sect x 3, ovarian cysts removed , left foot reconstruction Additional Past Anesthesia/Blood Transfusion Reaction / Comment(s): pt thinks she has had a reaction, but does not remember the reaction - hives possibly Past Psychological History: Bipolar Smoking Status: Never smoker Past Alcohol Use History: None Reported Past Drug Use History: None Reported - Past Family History Mother Family Medical History: Diabetes Mellitus, Hypertension Father Family Medical History: Diabetes Mellitus, Hearing Disorder / Deafness, Hypertension Daughter(s) Additional Family Medical History / Comment(s): hearing problems, digestive system problems Medications and Allergies Home Medications Medication Instructions Recorded Confirmed Type Adapalene [Differin] 1 applic TOPICAL DAILY 11/30/16 11/30/16 History Albuterol Inhaler [Ventolin Hfa 1 - 2 puff INHALATION RT-Q6H PRN 11/30/16 History Inhaler] Beclomethasone Dipropionate [Qvar 1 puff INHALATION RT-DAILY 11/30/16 11/30/16 History 40 mcg] Butalb/APAP/Caff 50-325-40Mg 1 tab PO DAILY PRN 11/30/16 11/30/16 History [Fioricet 50-325-40] Ergocalciferol (Vitamin D2) 50,000 unit PO Q7D 11/30/16 11/30/16 History [Vitamin D2] Fluocinolone Acetonide [Lidex Soln] 1 applic TOPICAL HS 11/30/16 11/30/16 History Ranitidine HCl [Zantac] 300 mg PO DAILY 11/30/16 11/30/16 History amLODIPine [Norvasc] 10 mg PO DAILY 11/30/16 11/30/16 History Sertraline HCl [Zoloft] 50 mg PO DAILY 12/01/16 12/01/16 History Allergies Allergy/AdvReac Type Severity Reaction Status Date / Time No Known Allergies Allergy Verified 11/30/16 21:40 Physical Exam Vitals: Vital Signs Temp Pulse Pulse Resp BP BP Pulse Ox 12/01/16 11:31 53 L 18 113/68 97 12/01/16 09:23 78 12/01/16 09:12 82 12/01/16 08:00 97.8 F 65 16 117/75 12/01/16 04:00 51 L 18 115/51 100 12/01/16 01:38 16 12/01/16 01:15 97.4 F L 68 16 110/59 100 12/01/16 00:47 98.9 F 51 L 18 121/62 97 11/30/16 23:09 74 18 138/75 100 11/30/16 21:21 97.5 F L 76 18 134/69 99 Intake and Output 11/30/16 12/01/16 12/01/16 22:59 06:59 14:59 Intake Total 400 Balance 400 Intake: IV 400 Sodium Chloride 0.9% 1, 400 000 ml @ 100 mls/hr IV . Q10H STA Rx#:[id number] Other: Weight 127.006 kg 137.8 kg 137.8 kg Patient Weight 12/02/16 06:59 Weight 137.8 kg PHYSICAL EXAMINATION: GENERAL: The patient is alert and oriented x3, not in any acute distress. Well developed, well nourished. HEENT: Pupils are round and equally reacting to light. EOMI. No scleral icterus. No conjunctival pallor. Normocephalic, atraumatic. No pharyngeal erythema. No thyromegaly. CARDIOVASCULAR: S1 and S2 present. No murmurs, rubs, or gallops. PULMONARY: Chest is clear to auscultation, no wheezing or crackles. ABDOMEN: Soft, nontender, nondistended, normoactive bowel sounds. No palpable organomegaly. MUSCULOSKELETAL: No joint swelling or deformity. EXTREMITIES: No cyanosis, clubbing, or pedal edema. NEUROLOGICAL: Gross neurological examination did not reveal any focal deficits. SKIN: No rashes. Results CBC & Chem 7: 12/01/16 05:46 12/01/16 05:46 Labs: Abnormal Lab Results - Last 24 Hours (Table) 12/01/16 12/01/16 Range/Units 05:46 12:27 D-Dimer 0.60 H (<0.60) mg/L FEU Chloride 109 H (98-107) mmol/L Carbon Dioxide 20 L (22-30) mmol/L BUN 6 L (7-17) mg/dL Thrombosis Risk Factor Assmnt - Choose All That Apply Each Factor Represents 1 point: Obesity (BMI >25), Swollen legs (current) Other Risk Factors: Yes Each Risk Factor Represents 3 Points: Positive Lupus Anticoagulant Thrombosis Risk Factor Assessment Total Risk Factor Score: 5 Thrombosis Risk Factor Assessment Level: High Risk Assessment and Plan Plan: #1 chest pain: Rule out acute coronary syndromes patient has atypical chest pain and musculoskeletal in nature. Workup as mentioned above patient will be discharged today. #2 chronic intermittent asthma: Without any acute exacerbation. #3 systemic lupus erythematosus: Management is as outpatient #4 multiple nonspecific symptoms of tingling and numbness of the fingers, I believe mostly these are psychosomatic are peripheral in origin I do not believe patient has a stroke of CVA at this time. #5 hypertension
--- NOTE | 2016-12-01 16:48 | ECHOF ---
Referral Reason:chest pain MEASUREMENTS -------- HEIGHT: 170.2 cm WEIGHT: 137.4 kg BP: 117/75 RVIDd: 2.7 cm (< 3.3) IVSd: 0.8 cm (0.6 - 1.1) LVIDd: 5.5 cm (3.9 - 5.3) LVPWd: 1.3 cm (0.6 - 1.1) IVSs: 1.1 cm LVIDs: 4.1 cm LVPWs: 1.2 cm LA Diam: 3.0 cm (2.7 - 3.8) Ao Diam: 3.1 cm (2.0 - 3.7) AV Cusp: 2.2 cm (1.5 - 2.6) LA Diam: 2.8 cm (2.7 - 3.8) MV EXCURSION: 18.438 mm (> 18.000) MV EF SLOPE: 124 mm/s (70 - 150) EPSS: 0.6 cm MV E Prince: 0.83 m/s MV DecT: 189 ms MV A Prince: 0.55 m/s MV E/A Ratio: 1.49 FINDINGS -------- Sinus rhythm. Morbid Obesity LV size, wall thickness and systolic function are normal, with an EF greater than 55%. The right ventricle is normal in size. The left atrial size is normal. The right atrial size is normal. There is mild aortic valve sclerosis. Normal appearing mitral valve. Mild tricuspid regurgitation present. Right ventricular systolic pressure is normal at < 35 mmHg. There is no evidence of pulmonary hypertension. There is no pulmonic regurgitation present. The aortic root size is normal. There is no pericardial effusion. CONCLUSIONS -------- 1. Morbid Obesity 2. There is no pericardial effusion. 3. LV size, wall thickness and systolic function are normal, with an EF greater than 55%. 4. The right atrial size is normal. 5. There is mild aortic valve sclerosis. 6. Normal appearing mitral valve. 7. Mild tricuspid regurgitation present. 8. Right ventricular systolic pressure is normal at < 35 mmHg. 9. There is no evidence of pulmonary hypertension. 10. There is no pulmonic regurgitation present. NETWORK ARCHITECT: Mila Adkins RDCS
[2016-12-01] MEDS ORDERED: BETAMETHASONE DIPROPIONATE 0.05% CREAM 15 GM TUBE TOPICAL SCH (21:00)
[2016-12-01] MEDS ORDERED: SERTRALINE 50 MG TAB PO SCH (21:00)
== END 2016-12-01 15:47 | disposition home or self-care (01) ==
LOC: EC 21:07 → 6SEL 12-01 00:26
PROVIDERS: ADMIT Hospitalist; ATTEND Hospitalist
DX: R07.89 Other chest pain (principal); J45.20 Mild intermittent asthma, uncomplicated; M32.9 Systemic lupus erythematosus, unspecified; R20.2 Paresthesia of skin; R11.2 Nausea with vomiting, unspecified; M54.2 Cervicalgia; I10 Essential (primary) hypertension; G43.909 Migraine, unspecified, not intractable, without status migrainosus; Z68.42 Body mass index [BMI] 45.0-49.9, adult; E66.01 Morbid (severe) obesity due to excess calories; Z83.3 Family history of diabetes mellitus; Z82.49 Family history of ischemic heart disease and other diseases of the circulatory system; Z79.51 Long term (current) use of inhaled steroids; Z79.899 Other long term (current) drug therapy
CPT/HCPCS: 99285; 96374; 96375 ×2; 96361 ×4; 96376 ×3; 36415; 94640; 93005; 93306; 85379; 80053; 80048; 82150; 83036; 82550 ×2; 82553 ×2; 83690; 83735; 84484 ×2; 85025 ×2; 85610; 85730; 71275; G0378; J2270 ×2; Q9967; J2405 ×2; C9113

== ENCOUNTER → 2016-12-05 | Outpatient (CLI) | payer OTHER ==
[2016-12-05 17:31] LABS: Blood Urea Nitrogen 6 mg/dL (7-17); Non-African American GFR(MDRD) >60 (>60 ml/min/1.73 sqM)
[2016-12-06 01:23] LABS: Cyclic Citrull Pep IgG Unit <0.5 U/mL; Cyclic Citrullinated Pep IgG NEGATIVE (NEGATIVE); RNP AB Interpretation NEGATIVE (NEGATIVE)
== END | disposition home or self-care (01) ==
LOC: LABWHC1 16:45
PROVIDERS: ATTEND Psychiatry & Neurology Pain Medicine
DX: M32.9 Systemic lupus erythematosus, unspecified (principal); M25.50 Pain in unspecified joint; M54.2 Cervicalgia; M54.5 Low back pain; R51 Headache
CPT/HCPCS: 36415; 82565; 84520; 86200; 86235